=== PATIENT | female | born 1950 | race Hispanic/Latino ===

== ENCOUNTER → 2021-01-06 | Outpatient (CLI) | payer MEDICARE | END | disposition home or self-care (01) | LOC: RAH 11:40 | PROVIDERS: ATTEND Family Medicine | DX: K80.20 Calculus of gallbladder without cholecystitis without obstruction (principal); R10.9 Unspecified abdominal pain; R11.2 Nausea with vomiting, unspecified | CPT/HCPCS: 78226; A9537 ==